=== PATIENT | male | born 1965 | race Native Hawaiian/Other Pacific Islander ===

== ENCOUNTER 2019-02-03 09:00 | Outpatient (CLI) | payer OTHER | END 2019-02-03 19:47 | disposition home or self-care (01) | LOC: MRI 09:00 | DX: M54.12 Radiculopathy, cervical region (principal); M54.2 Cervicalgia ==

== ENCOUNTER 2023-04-09 11:58 | Emergency (ER) | payer OTHER ==
[~2023-04-09] VITALS: Ht 172.7 cm; Wt 64.9 kg
[2023-04-09 14:15] VITALS: BP 118/77; TEMP 97.5
== END 2023-04-09 14:15 | disposition home or self-care (01) ==
LOC: ED 11:58
DX: M54.31 Sciatica, right side (principal)
CPT/HCPCS: 96372; 99283; J1100; J1885